=== PATIENT | male | born 1945 | race African-American/Black ===

== ENCOUNTER → 2016-04-28 | Outpatient (CLI) | payer MEDICARE, OTHER ==
[2016-01-23 14:28] VITALS: BP 157/84
[~2016-04-28] MED LIST: AMLO25PO MC; AMLO5TAB2 PO; APIX5TAB PO; BRIM5DRO2 OP; CYAN10005 PO; CYCL5TAB PO; DOCU100T5 PO; DOXY100C2 PO; DULO30CA2 PO; ERGO500012 PO; GABA-586 PO; GABA800T2 PO; HYDR-2678 PO; HYDR-965 PO; IRBE1TAB7 PO; IRBE300T3 PO; LATA2.5D3 EACHEYE; METF10002 PO; METF500T3 PO; MULT-658 PO; NAPR1TAB21 PO; NAPR250T2 PO; OXYC-323 PO; POTA20TA4 PO; PREG75CA PO; SPIR25TA3 PO; TIMO10DR11 OP; TIMO5DRO5 EACHEYE; TRAN4TAB9 PO; VERA240C2 PO; ZOLP10TA PO; ZOLP5TAB4 PO; [UNRECOGNIZED DRUG - CODE] IV
--- NOTE | 2016-04-29 15:58 | RAD ---
DATE: 04/28/2016 EXAM: DIGITAL DIAGNOSTIC BILATERAL HISTORY: History of right breast malignancy. COMPARISON: Bilateral study 03/11/2015 This study was interpreted with the benefit of Computerized Aided Detection (CAD). FINDINGS: The breast parenchyma is primarily fatty replaced. Breast parenchyma level density A.. There is now, in contrast to the previous exam, an area of increased density in the retroareolar area of the left breast. This does not have a particularly masslike appearance but it is definitely new. Targeted ultrasound to the retroareolar area of the left breast was performed. In addition to images submitted by the technologist a real-time examination was performed by me. Corresponding to the mammographic finding is a slightly vascular shadowing hypoechoic mass. Biopsy is recommended. IMPRESSION: New density in the retroareolar left breast. The findings on mammography and ultrasound are suspect. Ultrasound-guided biopsy is recommended. Recommendation for biopsy was communicated by me to the patient. BI-RADS CATEGORY: 4 SUSPICIOUS ABNORMALITY-BIOPSY SHOULD BE CONSIDERED RECOMMENDED FOLLOW-UP: BIO BIOPSY RECOMMENDED PQRS compliance statement: Patient information was entered into a reminder system with a target due date soon for the next mammogram. Mammography is a sensitive method for finding small breast cancers, but it does not detect them all and is not a substitute for careful clinical examination. A negative mammogram does not negate a clinically suspicious finding and should not result in delay in biopsying a clinically suspicious abnormality. "Our facility is accredited by the [employer] Mammography Program." DICTATED and SIGNED BY: BEN ROBLES MD DATE: 04/28/16 1454 MTDLetitia
== END | disposition home or self-care (01) ==
LOC: MAMMO 16:38
PROVIDERS: ATTEND Radiology Radiation Oncology
DX: R92.8 Other abnormal and inconclusive findings on diagnostic imaging of breast (principal); Z85.3 Personal history of malignant neoplasm of breast; N63 Unspecified lump in breast
CPT/HCPCS: 76641; G0204

== ENCOUNTER → 2016-05-06 | Outpatient (CLI) | payer MEDICARE, OTHER ==
[~2016-05-06] VITALS: Ht 185.4 cm; Wt 90.7 kg
[~2016-05-06] MED LIST changes: +DULO60CA6 PO; +IBUP-1060 PO; +PREG150C PO
[2016-05-06 08:47] VITALS: BP 137/83
--- NOTE | 2016-05-06 10:44 | RAD ---
EXAM: Sonographic guided left breast biopsy. HISTORY: 70-year-old male with a history of right breast cancer presents with a palpable left breast lump. TECHNIQUE: The risks of the procedure were discussed with the patient and written] consent was obtained. A timeout was performed. The skin overlying the left breast was sterilely prepped, draped and infiltrated with 1% lidocaine. Multiple core samples were obtained through the region of concern within the subareolar location of the left breast. The core samples were submitted to the department of pathology for analysis. Needle compression was maintained over the biopsy site until hemostasis was achieved. The patient tolerated the procedure without difficulty and was discharged in stable condition. IMPRESSION: Successful sonographic guided left breast biopsy.
--- NOTE | 2016-05-07 13:23 | PATHOLOGY ---
PATHOLOGY REPORT * * * * * * * * FINAL DIAGNOSIS: Breast tissue, left breast core biopsies: - Gynecomastia. COMMENT: There is no evidence of malignancy. (JPM:; d/t: 05/07/16) REPORT ELECTRONICALLY SIGNED BY: Brock Qiu M.D. DATE/TIME: 05/07/2016 13:22 * * * * * * * * GROSS PATHOLOGY: Received in formalin labeled "Jake Wilson Jr., left breast," are multiple needle cores of yellow-peacock fibrofatty tissue measuring 1.5 x 0.5 x 0.2 cm in aggregate dimensions. The tissue is submitted in its entirety in cassette A1. The cold ischemic time is 1 minute. The total formalin fixation time is 10 hours and 44 minutes. (CAA; 05/06/2016) INITIAL CPT CODE(S): A; 29619 Professional services performed [place] [place] [address] Technical services performed by [facility] at [address] [place] [address] [address], [place] [address]. SPECIMEN(S) RECEIVED: A.Left breast, 3 samples @ 0900 CLINICAL HISTORY: Left breast/nipple mass, history of right breast and thyroid ca PATIENT: JAKE WILSON JR /AGE: 8 1945 (Age: 70) PATIENT #: [id number] ALT CASE #: SPECIMEN COLLECTION DATE: 05/06/2016 SPECIMEN RECEIVED DATE: 05/06/2016 [facility] - [address] [place] [address] - PHONE: [phone] * * * END OF REPORT * * *
== END | disposition home or self-care (01) ==
LOC: US 08:32
PROVIDERS: ATTEND Radiology Radiation Oncology
DX: C50.222 Malignant neoplasm of upper-inner quadrant of left male breast (principal)
CPT/HCPCS: 76942; 88305

== ENCOUNTER 2016-06-15 22:58 | Emergency (ER) | payer MEDICARE, OTHER ==
[~2016-06-15] VITALS: Ht 182.9 cm; Wt 81.6 kg
[2016-06-16 00:14] LABS: BASO % 0 % (0-3); EOS % 4 % (0-3); HEMATOCRIT 37.6 % (39.0-53.0); HEMOGLOBIN 12.4 g/dL (13.0-17.5); LYMPH # 0.7 x10^3/uL (1.0-4.8); LYMPH % 9 % (24-48); MEAN CORPUSCULAR HEMOGLOBIN 31 pg (25-35); MEAN CORPUSCULAR HGB CONC 33 g/dL (31-37); MEAN CORPUSCULAR VOLUME 93 fL (79-100); MONO % 12 % (0-9); NEUT % 74 % (31-73); PLATELET COUNT 224 x10^3/uL (140-400); RED BLOOD COUNT 4.05 x10^6/uL (4.30-5.70); RED CELL DISTRIBUTION WIDTH 13.8 % (11.5-14.5); WHITE BLOOD COUNT 7.7 x10^3/uL (4.0-11.0)
[2016-06-16] MEDS ORDERED: IV NORMAL SALINE 1000ML BAG 1,000 ML IV SCH (00:15)
[2016-06-16] MEDS ORDERED: FENTANYL PF 100 MCG/2 ML VIAL. IV PRN (00:15)
[2016-06-16 00:17] LABS: BILIRUBIN,URINE NEGATIVE (NEG); GLUCOSE,URINE NEGATIVE (NEG); NITRITE,URINE NEGATIVE (NEG); PROTEIN,URINE NEGATIVE (NEG-TRACE); UROBILINOGEN,URINE 0.2 mg/dL (0.2 mg/dL)
--- NOTE | 2016-06-16 00:19 | PHYS DOC ---
Past Medical History Past Medical History: Cancer, Diabetes-Type II, High Cholesterol, Hypertension , Other Additional Past Medical Histor: prostate ca, thymic carcinoma, ductal carcinoma , neuropathy, swelling Past Surgical History: Other Additional Past Surgical Histo: prostectomy, chemo, radiation Alcohol Use: None Drug Use: None Adult General Chief Complaint Chief Complaint: FLANK PAIN HPI HPI Patient is a 70 year old male who presents with left flank and left lower quadrant abdominal pain. Patient states that he has had pain for the last 6 months, however it has worsened over the last 2 weeks. The patient saw his primary physician and was supposed to have a CT scan, however he stated that he was going on vacation and wanted to get this done after he got back. Patient states that the pain currently as 6 out of 10 and located in his left lower quadrant. Patient states that it does radiate towards his left flank. Patient has not had any associated diarrhea, hematuria, nausea, vomiting, or fever. The patient has an extensive cancer history including metastatic prostate cancer. Patient underwent chemotherapy throughout 2015, however due to interference [id number], he discontinued chemotherapy in August 2015. The patient continues to follow with oncology at this time. Review of Systems Review of Systems Constitutional: Denies fever or chills [] Eyes: Denies change in visual acuity, redness, or eye pain [] HENT: Denies nasal congestion or sore throat [] Respiratory: Denies cough or shortness of breath [] Cardiovascular: No additional information not addressed in HPI [] GI: Denies abdominal pain, nausea, vomiting, bloody stools or diarrhea [] : Denies dysuria or hematuria [] Musculoskeletal: Denies back pain or joint pain [] Integument: Denies rash or skin lesions [] Neurologic: Denies headache, focal weakness or sensory changes [] Endocrine: Denies polyuria or polydipsia [] Current Medications Current Medications Current Medications Medications (Trade) Dose Ordered Sig/Jacinta Start Time Stop Time Status Last Admin Dose Admin Fentanyl Citrate 50 mcg 50 mcg PRN Q15MIN PRN 06/16/16 00:15 06/17/16 00:14 06/16/16 00:14 50 MCG Info (Do NOT chart on this entry -- for MONITORING) 1 each PRN DAILY PRN 06/16/16 00:30 06/18/16 00:29 Iohexol (Omnipaque 300 Mg/ml) 75 ml 1X ONCE 06/16/16 01:00 06/16/16 01:01 DC 06/16/16 00:45 75 ML Ondansetron HCl (Zofran) 4 mg 1X ONCE 06/16/16 00:30 06/16/16 00:31 DC 06/16/16 00:14 4 MG Sodium Chloride (Iv Sodium Chloride 0.9% 1000ml Bag) 1,000 ml @ 1,000 mls/hr Q1H 06/16/16 00:15 06/16/16 01:14 DC 06/16/16 00:14 1,000 MLS/HR Allergies Allergies Allergies Coded Allergies Type Severity Reaction Last Updated Verified oxycodone Allergy Intermediate PURITIS 02/11/16 Yes Physical Exam Physical Exam Constitutional: Alert, afebrile, appears in mild discomfort. [] HENT: Normocephalic, atraumatic, bilateral external ears normal, oropharynx moist, no oral exudates, nose normal. [] Eyes: PERRLA, EOMI, conjunctiva normal, no discharge. [] Neck: Normal range of motion, no tenderness, supple, no stridor. [] Cardiovascular:Heart rate regular rhythm, no murmur [] Lungs & Thorax: Bilateral breath sounds clear to auscultation [] Abdomen: Bowel sounds normal, soft, no tenderness, no masses, no pulsatile masses. [] Skin: Warm, dry, no erythema, no rash. [] Back: No tenderness, no CVA tenderness. [] Extremities: No tenderness, no cyanosis, no clubbing, ROM intact, no edema. [] Neurologic: Alert and oriented X 3, normal motor function, normal sensory function, no focal deficits noted. [] Current Patient Data Vital Signs Vital Signs Date Time Temp Pulse Resp B/P Pulse Ox O2 Delivery O2 Flow Rate FiO2 06/16/16 00:14 16 Room Air 06/15/16 23:18 98.1 96 179/91 93 98.1 Lab Values Laboratory Tests Test 06/16/16 00:00 White Blood Count 7.7x10^3/uL (4.0-11.0) Red Blood Count 4.05x10^6/uL (4.30-5.70) L Hemoglobin 12.4g/dL (13.0-17.5) L Hematocrit 37.6% (39.0-53.0) L Mean Corpuscular Volume 93fL (79-100) Mean Corpuscular Hemoglobin 31pg (25-35) Mean Corpuscular Hemoglobin Concent 33g/dL (31-37) Red Cell Distribution Width 13.8% (11.5-14.5) Platelet Count 224x10^3/uL (140-400) Neutrophils (%) (Auto) 74% (31-73) H Lymphocytes (%) (Auto) 9% (24-48) L Monocytes (%) (Auto) 12% (0-9) H Eosinophils (%) (Auto) 4% (0-3) H Basophils (%) (Auto) 0% (0-3) Neutrophils # (Auto) 5.7x10^3uL (1.8-7.7) Lymphocytes # (Auto) 0.7x10^3/uL (1.0-4.8) L Monocytes # (Auto) 1.0x10^3/uL (0.0-1.1) Eosinophils # (Auto) 0.3x10^3/uL (0.0-0.7) Basophils # (Auto) 0.0x10^3/uL (0.0-0.2) Urine Collection Type Unknown Urine Color Yellow Urine Clarity Clear Urine pH 6.0 Urine Specific [place] >=1.030 Urine Protein Negativemg/dL (NEG-TRACE) Urine Glucose (UA) Negativemg/dL (NEG) Urine Ketones (Stick) Negativemg/dL (NEG) Urine Blood Negative (NEG) Urine Nitrite Negative (NEG) Urine Bilirubin Negative (NEG) Urine Urobilinogen Dipstick 0.2mg/dL (0.2 mg/dL) Urine Leukocyte Esterase Negative (NEG) Urine RBC 0/HPF (0-2) Urine WBC Occ/HPF (0-4) Urine Squamous Epithelial Cells Few/LPF Urine Amorphous Sediment Present/HPF Urine Bacteria 0/HPF (0-FEW) Urine Mucus Mod/LPF Sodium Level 143mmol/L (136-145) Potassium Level 4.0mmol/L (3.5-5.1) Chloride Level 104mmol/L (98-107) Carbon Dioxide Level 31mmol/L (21-32) Anion Gap 8 (6-14) Blood Urea Nitrogen 22mg/dL (8-26) Creatinine 1.1mg/dL (0.7-1.3) Estimated GFR (Cockcroft-Gault) 80.3 BUN/Creatinine Ratio 20 (6-20) Glucose Level 145mg/dL (70-99) H Calcium Level 9.6mg/dL (8.5-10.1) Total Bilirubin 0.3mg/dL (0.2-1.0) Aspartate Amino Transferase (AST) 22U/L (15-37) Alanine Aminotransferase (ALT) 31U/L (16-63) Alkaline Phosphatase 101U/L (46-116) Troponin I Quantitative < 0.017ng/mL (0.000-0.055) Total Protein 6.6g/dL (6.4-8.2) Albumin 3.7g/dL (3.4-5.0) Albumin/Globulin Ratio 1.3 (1.0-1.7) Lipase 208U/L (73-393) Laboratory Tests 06/16/16 00:00 Laboratory Tests 06/16/16 00:00 EKG EKG Not performed [] Radiology/Procedures Radiology/Procedures [facility] [address] [place] [address] IMAGING REPORT Signed PATIENT: LYNDA PEREZ ACCOUNT: [id number] : 1945 LOCATION: ER AGE: 70 SEX: M EXAM STATUS: REG ER ORD. PHYSICIAN: COCO ESPINOZA MD REASON: left lower quadrant abdominal pain, history of metastatic prostate cancer PROCEDURE: ABD PELV W/ IV CONTRAST ONLY INDICATION: Abdomen pain. COMPARISON: March 2016 TECHNIQUE: Axial CT images obtained through the abdomen and pelvis. Intravenous contrast was utilized. One or more of the following individualized dose reduction techniques were utilized for this examination: 1. Automated exposure control; 2. Adjustment of the mA and/or kV according to patient size; 3. Use of iterative reconstruction technique. FINDINGS: Masslike structure is seen at the left chest base within the pleural region as well as adjacent to the aorta and at upper abdomen. This masslike structure measures approximately 66 x 30 millimeter. Small left pleural effusion. Moderate calcific atherosclerosis. No intrahepatic bile duct dilation. No pancreatic edema. Spleen is unremarkable. 6 millimeter nonobstructive left renal stone. Probable cystic lesion left kidney as well as a couple of bilateral low-attenuation lesions which are too small to characterize. Left fat containing inguinal hernia. Bladder partially distended. Colonic diverticulosis. Appendix does not appear inflamed. No dilated loops of bowel to suggest obstruction. Small fat containing umbilical hernia. Degenerative changes of spine. 15 millimeter lucent focus L2 vertebral body. IMPRESSION: No evidence of bowel obstruction or appendicitis. Repeat demonstration of masslike structure at the left chest base. Given the patient's history metastatic disease is in the differential for this finding. This appears increased from prior. Nonobstructive left renal stone. There is some bilateral low-attenuation renal lesions. The largest has the appearance of the cystic lesion a couple of them are too small to characterize. Lucent focus at the L2 vertebral body. Could be from focal osteopenia or hemangioma but given the patient's history more worrisome neoplastic causes are not excluded. Nonemergent MRI could better evaluate Electronically signed by: Duane Foreman (Jun 16, 2016 01:48:56) DICTATED and SIGNED BY: DUANE FOREMAN MD DATE: 06/16/16 014 CC: COCO ESPINOZA MD; SHILPA LEO ~ [] Course & Med Decision Making Course & Med Decision Making Pertinent Labs and Imaging studies reviewed. (See chart for details) Patient was given Zofran, fentanyl, and IV fluids. On reevaluation, patient states his symptoms have improved at this time. The etiology of patient's pain is unclear, however I remain suspicious that the patient's pain may be related to metastatic prostate cancer. At this time the patient will be started on [place] for treatment of pain and advised follow-up with his primary doctor in the next 2-3 days. Advised return emergency department for any worsening symptoms. Patient voiced understanding and in agreement with treatment plan. Dragon Disclaimer Dragon Disclaimer This electronic medical record was generated, in whole or in part, using a voice recognition dictation system. Departure Departure Impression: Primary Impression: Abdominal pain Referrals: SHILPA LEO (PCP) Patient Instructions: Abdominal Pain Additional Instructions: Follow-up with your primary doctor in the next 2-3 days. Return to the emergency department for any worsening symptoms. Scripts Hydrocodone/Apap 5-325 (B[place]bridge 5-325 Tablet)1 Each Tablet1-2 Tab PO Q4-6HRS PRN PAIN #20 TAB Prov:COCO ESPINOZA MD 06/16/16 Problem Qualifiers Primary Impression: Abdominal pain Abdominal location: left lower quadrant Qualified Code: R10.32 - Left lower quadrant pain COCO ESPINOZA MD Jun 16, 2016 00:19
[2016-06-16 00:24] LABS: BACTERIA,URINE 0 /HPF (0-FEW); RBC,URINE 0 /HPF (0-2); WBC,URINE OCC /HPF (0-4)
[2016-06-16 00:25] LABS: SQUAMOUS EPITHELIAL CELL,UR FEW /LPF
[2016-06-16 00:28] LABS: CALCIUM 9.6 mg/dL (8.5-10.1); CREATININE 1.1 mg/dL (0.7-1.3); GFR 80.3
[2016-06-16] MEDS ORDERED: CONTRAST GIVEN MC PRN (00:30)
[2016-06-16] MEDS ORDERED: ONDANSETRON PF 4 MG/2 ML VIAL. IV ONE (00:30)
[2016-06-16 00:33] LABS: ALBUMIN 3.7 g/dL (3.4-5.0); ALBUMIN/GLOBULIN RATIO 1.3 (1.0-1.7); TOTAL BILIRUBIN 0.3 mg/dL (0.2-1.0); TOTAL PROTEIN 6.6 g/dL (6.4-8.2)
[2016-06-16] MEDS ORDERED: IOHEXOL 300 MG/ML 75 ML VIAL IV ONE (01:00)
--- NOTE | 2016-06-16 01:50 | RAD ---
INDICATION: Abdomen pain. COMPARISON: March 2016 TECHNIQUE: Axial CT images obtained through the abdomen and pelvis. Intravenous contrast was utilized. One or more of the following individualized dose reduction techniques were utilized for this examination: 1. Automated exposure control; 2. Adjustment of the mA and/or kV according to patient size; 3. Use of iterative reconstruction technique. FINDINGS: Masslike structure is seen at the left chest base within the pleural region as well as adjacent to the aorta and at upper abdomen. This masslike structure measures approximately 66 x 30 millimeter. Small left pleural effusion. Moderate calcific atherosclerosis. No intrahepatic bile duct dilation. No pancreatic edema. Spleen is unremarkable. 6 millimeter nonobstructive left renal stone. Probable cystic lesion left kidney as well as a couple of bilateral low-attenuation lesions which are too small to characterize. Left fat containing inguinal hernia. Bladder partially distended. Colonic diverticulosis. Appendix does not appear inflamed. No dilated loops of bowel to suggest obstruction. Small fat containing umbilical hernia. Degenerative changes of spine. 15 millimeter lucent focus L2 vertebral body. IMPRESSION: No evidence of bowel obstruction or appendicitis. Repeat demonstration of masslike structure at the left chest base. Given the patient's history metastatic disease is in the differential for this finding. This appears increased from prior. Nonobstructive left renal stone. There is some bilateral low-attenuation renal lesions. The largest has the appearance of the cystic lesion a couple of them are too small to characterize. Lucent focus at the L2 vertebral body. Could be from focal osteopenia or hemangioma but given the patient's history more worrisome neoplastic causes are not excluded. Nonemergent MRI could better evaluate Electronically signed by: Daquan Hobson (Jun 16, 2016 01:48:56)
[2016-06-16] MEDS ORDERED: HYDR-971 PO (02:11)
[2016-06-16 02:21] VITALS: BP 166/96
== END 2016-06-16 02:27 | disposition home or self-care (01) ==
LOC: ER 22:58
DX: R10.32 Left lower quadrant pain (principal); E78.00 Pure hypercholesterolemia, unspecified; I10 Essential (primary) hypertension; E11.40 Type 2 diabetes mellitus with diabetic neuropathy, unspecified; N20.0 Calculus of kidney; Z88.5 Allergy status to narcotic agent
CPT/HCPCS: 36415; 74177; 80053; 81001; 83690; 84484; 85027; 96361; 96374; 96375; 99285; J2405; J3010; J7030; Q9967

== ENCOUNTER → 2016-06-23 | Outpatient (CLI) | payer MEDICARE, OTHER ==
[2016-06-16 02:21] VITALS: BP 166/96
[~2016-06-23] MED LIST changes: +HYDR-971 PO; +TAMS0.4C97 PO; -ZOLP5TAB4 PO; +ZOLP5TAB5 PO
--- NOTE | 2016-06-23 15:56 | RAD ---
Exam performed: X-ray abdomen KUB. Clinical Indication: Left renal stone Date of Service: 06/23/16 Comparison: 10/01/04 Supine radiograph of the abdomen and pelvis reveals no evidence of ileus or obstruction. There is a calcification projecting over the left renal outline. There is scattered stool throughout the colon. The visualized osseous structures appear unremarkable. Impression: 1. Left renal calculus.
== END | disposition home or self-care (01) ==
LOC: RAD 15:05
PROVIDERS: ATTEND Urology
DX: N20.1 Calculus of ureter (principal); N20.0 Calculus of kidney
CPT/HCPCS: 74000

== ENCOUNTER → 2016-07-08 | Outpatient (CLI) | payer MEDICARE, OTHER ==
[2016-06-16 02:21] VITALS: BP 166/96
--- NOTE | 2016-07-08 12:49 | RAD ---
KUB, 07/08/2016: History: Left-sided abdominal pain, kidney stones Comparison is made to a study from 06/23/2016. The abdominal gas pattern is unremarkable. There are surgical clips in the lower pelvis. The renal regions are partially obscured by overlying bowel content. No intrarenal calculi are identified. The previously seen left intrarenal calculus is not currently visualized, although it could be obscured by overlying bowel. No similar radiopacities seen along the expected course of either ureter. An unchanged lower pelvic calcification on the right is compatible with a phlebolith. IMPRESSION: 1. The small left intrarenal calculus seen on the previous exam is not currently visualized, although it could be obscured by overlying bowel. 2. No acute abdominal abnormality is detected.
== END | disposition home or self-care (01) ==
LOC: RAD 08:32
PROVIDERS: ATTEND Urology
DX: R10.9 Unspecified abdominal pain (principal); Z87.442 Personal history of urinary calculi
CPT/HCPCS: 74000

== ENCOUNTER → 2016-07-15 | Outpatient (CLI) | payer MEDICARE, OTHER ==
[2016-06-16 02:21] VITALS: BP 166/96
--- NOTE | 2016-07-15 11:41 | KCIC ---
Examination: CT of the abdomen pelvis without contrast HISTORY History of left renal calculus. COMPARISON None available. TECHNIQUE Axial CT images of the head was performed without contrast. Coronal sagittal was performed. Exposure: One or more of the following dose reduction technique were utilized for this examination: 1. Automated exposure control. 2.Adjustment of MA and /or KV according to patient size. 3. Use of iterative reconstruction technique. Findings : There is focus of airspace opacity identified in the left lower lobe of the lung abutting the pleura measuring 1.7 centimeters could be a focus of atelectasis or infiltrate or mass. In the posterior medial portion of the posterior mediastinum just posterior to the descending aorta and medial to the posterior medial left pleura, best visualized on axial image #37 there is a nonspecific soft tissue density measuring 4.1 x 2.9 centimeters abutting the left side of the T10 vertebral body. The evaluation of the solid organs is limited lack of IV contrast. The evaluation of the bowel is limited lack of oral contrast. The visualized non contrasted liver, spleen, adrenals grossly appears unremarkable. The gallbladder is mildly distended. The visualized pancreas grossly appears unremarkable. The stomach is mildly distended. The small bowel is nondilated. Normal-appearing appendix. Feces and gas noted in the colon. Numerous sigmoid colon diverticulosis identified . There is asymmetric thickening identified in the distal rectal wall region. The urinary bladder is mildly distended. There is mild thickened appearance of the wall of the urinary bladder. There is a cystic structure identified in the superior left kidney measuring 1.6 centimeters could be a cyst or cystic lesion. There is a punctate 2 millimeter intrarenal collecting system calculus identified in the left kidney. There is a 8 millimeters intrarenal collecting system calculus identified in the inferior pole of the left kidney. No evidence of hydronephrosis . Moderate aortic atherosclerosis. Moderate intervertebral disc height loss identified at L4-L5 vertebral level. IMPRESSION - Intrarenal collecting system calculi identified in the left kidney with the largest measuring 8 millimeters. No evidence of hydronephrosis. - Mild thickened appearance of the wall of the urinary bladder, nonspecific . - Numerous sigmoid colon diverticulosis. There is mild asymmetric thickening of the distal rectum. Followup colonoscopy can be considered. - 4.1 centimeter soft tissue density projects posterior to the descending aorta just to the left of T10 vertebral body, difficult to characterize without contrast. Recommend followup CT or MRI chest with IV contrast for better evaluation. - 1.7 centimeter focus of airspace opacity identified in the left lung base likely atelectasis/ infiltrate or mass. Followup CT chest is recommended. - There is a cystic structure identified in the superior left kidney measuring 1.6 centimeters could be a cyst or cystic lesion. Electronically signed by: Jose David Avendano (Jul 15, 2016 11:40:06)
== END | disposition home or self-care (01) ==
LOC: KCIC CT 09:48
PROVIDERS: ATTEND Urology
DX: N20.0 Calculus of kidney (principal)
CPT/HCPCS: 74176

== ENCOUNTER → 2016-07-15 | Outpatient (CLI) | payer MEDICARE, OTHER ==
[2016-06-16 02:21] VITALS: BP 166/96
[~2016-07-15] MED LIST changes: +GADOBUTROL 10 MMOL/10 ML VIAL IV ONE
--- NOTE | 2016-07-15 15:11 | KCIC ---
PROCEDURE MRI of the lumbar spine without and with contrast 07/15/2016 HISTORY Low back pain. History of prostate cancer. TECHNIQUE Unenhanced T1 weighted and T2 weighted sagittal and axial and inversion recovery sagittal images of the lumbar spine were obtained. After the intravenous administration of 9 cc of Gadavist, enhanced T1 weighted sagittal and axial images of the lumbar spine were obtained. FINDINGS Very mild S-shaped curvature of the thoracolumbar spine is seen. Degenerative signal changes are seen involving all of the discs of the lumbar spine. Loss of height of the L4-5 disc is noted. Degenerative signal changes are seen within the marrow surrounding all of the discs of the lumbar spine. A 2.2 centimeter hemangioma is seen involving the L2 vertebral body. There is no MRI evidence of metastatic disease involving the lumbar vertebrae. The conus medullaris is normal in morphology, position, and signal characteristics. No area of abnormal contrast enhancement is seen. At the L1-2 disc space there is a mild to moderate generalized disc bulge. Degenerative changes are seen involving the facet joints bilaterally. There is moderate ligamentum flavum hypertrophy bilaterally. There is prominence of the posterior epidural fat. These findings when combined do not result in significant central spinal canal or neural foraminal stenosis. At the L2-3 disc space there is a mild generalized disc bulge. Degenerative changes are seen involving the facet joints bilaterally. There is mild to moderate ligamentum flavum hypertrophy bilaterally. These findings do not result in significant central spinal canal or neural foraminal stenosis. At the L3-4 disc space there is a mild to moderate generalized disc bulge. This is eccentric to the right. Degenerative changes are seen involving the facet joints bilaterally. There is moderate ligamentum flavum hypertrophy bilaterally. There is prominence of the posterior epidural fat. These findings when combined result in mild to moderate central spinal canal stenosis. Moderate right neural foraminal stenosis is seen. The left neural foramina is patent. At the L4-5 disc space there is a moderate generalized disc bulge. Degenerative changes are seen involving the facet joints bilaterally. There is moderate ligamentum flavum hypertrophy bilaterally. These findings when combined result in mild to moderate moderate right greater than left central spinal canal stenosis. Moderate right neural foraminal stenosis is seen. The left neural foramina is patent. At the L5-S1 disc space there is moderate generalized disc bulge. Degenerative changes are seen involving the facet joints bilaterally. There is moderate ligamentum flavum hypertrophy bilaterally. These findings when combined result in mild central spinal canal stenosis. No neural foraminal stenosis is seen. IMPRESSION 1. There is no MRI evidence of metastatic disease involving the lumbar vertebrae. 2. The changes of degenerative disc disease are seen throughout the lumbar spine. These findings result in mild to moderate central spinal canal stenosis at L3-4, mild to moderate right greater than left central spinal canal stenosis at L4-5 and mild central spinal canal stenosis at L5-S1. Moderate right neural foraminal stenosis is seen at L3-4 and L4-5. Electronically signed by: Jose Martin Ridley MD (Jul 15, 2016 15:09:08)
--- NOTE | 2016-07-16 09:52 | KCIC ---
PROCEDURE MRI of the abdomen without and with contrast 07/15/2016 HISTORY Metastatic prostate cancer with left-sided abdominal pain. TECHNIQUE Unenhanced in and out of phase, T1 weighted axial, T2 weighted axial and fat saturated T2 weighted axial and coronal images of the abdomen were obtained. After the intravenous administration of 9 cc Gadavist, enhanced fat saturated T1 weighted axial and T1 weighted coronal images of the abdomen were obtained. FINDINGS Comparison is made to a CT scan of the abdomen performed at [facility] dated 06/16/2016. Pleural thickening is seen involving the posterior aspect of the left lower lobe. A 6 centimeter masslike area is seen posterior to the thoracic aorta within the medial posterior inferior left chest which is suspicious for metastasis. This is not significantly changed. The heart is mildly enlarged. The liver, spleen, pancreas and adrenal glands are within normal limits. Several rounded high signal intensity lesions are seen scattered throughout both kidneys on the T2 weighted images consistent with cysts. These measure 3 millimeters to 1.8 centimeters in size. The abdominal aorta tapers normally. No free fluid is seen within the abdomen. No retroperitoneal lymphadenopathy is seen. Multiple diverticula are seen involving the colon. The gallbladder is well distended. There is no definite evidence of bowel obstruction. IMPRESSION 1. 6 centimeter masslike area is seen posterior to the thoracic aorta within the medial posterior inferior left chest suspicious for a metastasis. It is unchanged. 2. No acute abnormality is seen. Electronically signed by: Jose Martin Ridley MD (Jul 16, 2016 09:50:37)
== END | disposition home or self-care (01) ==
LOC: KCIC MRI 09:24
PROVIDERS: ATTEND Family Medicine
DX: R93.8 Abnormal findings on diagnostic imaging of other specified body structures (principal)
CPT/HCPCS: 72158; 74183; 82565; A9585

== ENCOUNTER → 2016-07-15 | Outpatient (CLI) | payer MEDICARE, OTHER ==
[2016-06-16 02:21] VITALS: BP 166/96
[~2016-07-15] MED LIST changes: -GADOBUTROL 10 MMOL/10 ML VIAL IV ONE
--- NOTE | 2016-07-15 14:46 | RAD ---
CT of the chest without contrast, 07/15/2016: History: Thymic cancer follow-up, pulmonary nodules Noncontrast scans were obtained as requested and compared to a study from 03/31/2016. Multiple soft tissue pleural nodules are again identified on the left. These have increased slightly in size. For example a anterolateral nodule seen on image 46 of series #2 currently measures 7 mm in width compared to a measurement of just over 5 mm on the previous study. Multiple other pleural nodules have increased slightly in size including a couple of tiny nodules along the superior aspect of the oblique fissure on the left. Soft tissue densities in the medial aspect of the posterior costophrenic angle on the left have increased in size. While the majority of these nodules appear to be pleural-based, there are also several parenchymal nodules as seen in the left upper lobe on image 42 of series #2. The largest of these measures 5-6 mm and also appears to be increased slightly in size. There is a trace amount of left-sided pleural fluid. There is a patch of mild streaky infiltrate in the anteromedial aspect of the left upper lobe, unchanged since the previous study. No nodules are evident in the right chest. No right-sided pleural fluid is seen. There has been a previous median sternotomy. Surgical clips are present in the anterior mediastinum. Several small mediastinal lymph nodes are noted. These have increased slightly in size, although they do not demonstrate definite pathologic enlargement. A small nodule in the epicardial fat along the lateral aspect of the left ventricle has also increased slightly in size. A small soft tissue density in the lower internal mammary region on the left as seen on image 53 of series #2 has also increased in size. There is calcific plaquing of the aorta. The ascending aorta is mildly dilated measuring just over 4 cm in width. A nonspecific right thyroid nodule is again noted. IMPRESSION: 1. Predominantly pleural-based nodules in the left chest have increased in size since 03/31/2016 compatible with progressive metastatic disease. 2. Small epicardial and left internal mammary region nodules have also enlarged slightly. 3. Aortic atherosclerosis with borderline enlargement of the ascending aorta. PQRS Compliance Statement: One or more of the following individualized dose reduction techniques were utilized for this examination: 1. Automated exposure control 2. Adjustment of the mA and/or kV according to patient size 3. Use of iterative reconstruction technique
== END | disposition home or self-care (01) ==
LOC: KCIC CT 10:24
PROVIDERS: ATTEND Internal Medicine Hematology & Oncology
DX: C37 Malignant neoplasm of thymus (principal); I70.0 Atherosclerosis of aorta
CPT/HCPCS: 71250

== ENCOUNTER → 2016-08-11 | Outpatient (CLI) | payer MEDICARE, OTHER ==
--- NOTE | 2016-08-11 12:03 | KCIC ---
PROCEDURE CT abdomen pelvis without contrast. HISTORY Left renal calculi post renal stent. TECHNIQUE Helical CT imaging of the abdomen and pelvis is performed without IV or oral contrast using renal stone protocol. PQRS: One or more the following individualized dose reduction techniques were utilized for the study: 1. Automated exposure control. 2. Adjustment of the mA and/or kV according to patient size. 3. Use of iterative reconstruction technique. COMPARISON CT abdomen and pelvis without contrast July 15, 2016. FINDINGS Stable nodular opacities in the left lower lobe. Soft tissue mass posterior to the descending thoracic aorta in the medial left extrapleural space is unchanged. There is left posterior inferior pleural thickening. Left cardiophrenic soft tissue density is unchanged, image 15. The liver, gallbladder, spleen, pancreas, adrenal glands, and abdominal aorta are normal. The right kidney is normal. There is left ureteral stent. Small left upper pole renal cyst. Mild left perinephric stranding. There is no hydronephrosis. There is periureteral stranding. There is a Stevens catheter in the bladder, bladder is completely decompressed. Surgical clips of prostatectomy. Stomach unremarkable. Tiny fat containing umbilical hernia. Dilated small bowel is normal. Moderate descending and sigmoid colon diverticulosis, no surrounding inflammation. Moderate stool in the ascending and transverse colon. No colon wall thickening. The appendix is normal. No pelvic free fluid. Vacuum disc phenomenon and reactive endplate changes of L4/L5. IMPRESSION 1. Stable medial and posterior left extrapleural soft tissue mass. 2. Stable nodular opacities in the left lower lobe and left posterior inferior pleural thickening. 3. Left ureteral stent in appropriate position. There is Stevens catheter, bladder is completely decompressed. 4. Distal colon diverticulosis without evidence of diverticulitis. Electronically signed by: Chago Easley MD (Aug 11, 2016 12:01:51)
== END | disposition home or self-care (01) ==
LOC: KCIC CT 08:18
PROVIDERS: ATTEND Urology
DX: N20.0 Calculus of kidney (principal)
CPT/HCPCS: 74176

== ENCOUNTER → 2016-09-15 | Outpatient (CLI) | payer MEDICARE, OTHER ==
[~2016-09-15] MED LIST changes: +CONTRAST GIVEN MC PRN; +IOHEXOL 240 MG/ML 50ML VIAL. PO ONE; +IOHEXOL 300 MG/ML 75 ML VIAL IV ONE; +METF-620 PO; -METF10002 PO
--- NOTE | 2016-09-15 11:58 | RAD ---
CT of the chest, abdomen and pelvis with contrast, 09/15/2016: History: Left-sided abdominal pain, thymic neoplasm, prostatic cancer Multidetector CT imaging was performed following oral and IV administration of contrast. Comparison is made to a CT chest exam from 07/15/[address] abdomen and pelvis from 08/11/2016. There are multiple pleural-based soft tissue densities in the left hemithorax. These densities are most prominent posteromedially in the left lower chest, where this process measures approximately 3 cm in width. Multiple additional smaller pleural-based densities are present in the left chest. There are also several small perifissural nodules on the left. These densities appear to be unchanged. Two small opacities identified in the left upper lobe on image 26 of series #2, actually represent additional areas of pleural thickening related to an accessory fissure as evident on the sagittal reconstructions. These opacities appear to be unchanged. Unchanged streaky parenchymal opacities in the anteromedial aspect of the left upper lobe are unchanged and probably due to scarring. There are nearby radiopaque suture lines and/or surgical clips. The small soft tissue density in the lower internal mammary region on the left is unchanged. There appears to be a trace amount of pleural fluid posteriorly on the left. The right lung remains clear. No right-sided pleural fluid is evident. There is calcific plaquing of the thoracic aorta. The ascending aorta is at the upper limits of normal in size measuring 4 cm in width. No mediastinal or hilar adenopathy is seen. A right thyroid nodule is unchanged. No hepatic abnormality is detected. The gallbladder is unremarkable. The pancreas and spleen show no abnormality. Numerous small low-density lesions in the kidneys are compatible with cysts, although some of the smaller lesions are too small to definitively characterize. The left ureteral stent has been removed. There is no evidence of hydronephrosis. No adrenal abnormality is detected. Moderate aortoiliac calcific plaquing is present without evidence of aneurysm. No abdominal or pelvic adenopathy is seen. Surgical clips in the deep pelvis are probably secondary to a previous prostatectomy. Colonic diverticulosis is present, most extensive in the sigmoid region. No paracolonic inflammatory process is seen. The bowel loops are not dilated. No free fluid is evident in the abdomen or pelvis. IMPRESSION: 1. 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 2. No new chest abnormality is detected. 3. The left ureteral stent has been removed since 08/11/2016. 4. Extensive sigmoid diverticulosis. PQRS Compliance Statement: One or more of the following individualized dose reduction techniques were utilized for this examination: 1. Automated exposure control 2. Adjustment of the mA and/or kV according to patient size 3. Use of iterative reconstruction technique
== END | disposition home or self-care (01) ==
LOC: CT 08:35
PROVIDERS: ATTEND Internal Medicine Hematology & Oncology
DX: C37 Malignant neoplasm of thymus (principal)
CPT/HCPCS: 71260; 74177; Q9966; Q9967

== ENCOUNTER → 2016-10-01 | Outpatient (CLI) | payer MEDICARE, OTHER ==
[~2016-10-01] MED LIST changes: -CONTRAST GIVEN MC PRN; -IOHEXOL 240 MG/ML 50ML VIAL. PO ONE; -IOHEXOL 300 MG/ML 75 ML VIAL IV ONE
--- NOTE | 2016-10-01 11:56 | RAD ---
Indication thymic malignancy. Restaging. PET CT was performed from the skull through the proximal thigh. CT was performed primarily for localization and attenuation purposes as opposed to primary diagnostic purposes. Blood sugar during the examination was entered and 37. 13.2 mCi of FDG was injected. Note is made of a previous examination 11/18/2012 demonstrating a single focus of hypermetabolic activity in the anterior mediastinum note is made of the CT examination of the chest abdomen and pelvis 09/15/2016 demonstrating findings compatible with pleural-based metastatic disease in the left hemithorax On CT the visualized brain appears unremarkable. No significant finding is seen in the neck. Known pathology involving the pleura in the left hemithorax is reproduced. Similar to the previous exam. A new finding in the chest is not seen no acute or new finding is seen in the abdomen or pelvis. On PET the pleural-based soft tissue masses, referenced on the CT examination 09/15/2016 are FDG avid. The dominant pleural-based mass is in the left lung base medially. Maximum SUV associated with this mass is 7.2. Several additional FDG avid pleural-based masses are seen in the left midlung laterally, ventrally and superiorly and medially. There are soft tissue masses laterally, posteriorly and ventrally in the left upper abdomen, immediately adjacent to left lower ribs. These soft tissue masses are FDG avid with maximum SUV of approximately 5.5 consistent with a focus of soft tissue metastatic disease apart from this the FDG is physiologically distributed in the abdomen and pelvis. There is a minimally avid FDG soft tissue mass in the left breast, maximum SUV 2. This likely represents a focus of gynecomastia. IMPRESSION: Pleural-based masses in the left hemithorax, referenced on the CT examination 09/15/2016, are FDG avid compatible with pleural metastatic disease. There are FDG soft tissue masses laterally, ventrally and posteriorly in the left upper abdomen also compatible with foci of metastatic disease Minimally avid soft tissue mass in the left breast likely reflecting a focus of gynecomastia
== END | disposition home or self-care (01) ==
LOC: PETSC 09:18
PROVIDERS: ATTEND Internal Medicine Hematology & Oncology
DX: C37 Malignant neoplasm of thymus (principal)
CPT/HCPCS: 78815; A9552

== ENCOUNTER → 2016-12-17 | Outpatient (CLI) | payer MEDICARE, OTHER ==
[~2016-12-17] MED LIST changes: +AMIT25TA PO; -ERGO500012 PO; +ERGO500027 PO
--- NOTE | 2016-12-17 11:18 | RAD ---
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 Chemotherapy on 08/2015. Radiation therapy 4 weeks ago. Surgery in 2013.. Follow-up PET/CT. FDG PET-CT of the Body TECHNIQUE: The patient received an IV injection of 12.44 mCi 18F-FDG in the right hand . After an initial uptake phase of approximately 60-90 minutes, a CT scan without oral contrast, without IV contrast was acquired. Subsequently, positron emission tomography images from the skull base to mid thigh were obtained. CT, PET and fused images were reconstructed in transaxial, coronal, and sagittal projections and interpreted from a workstation. The patient's plasma glucose was 159 mg/dl. PRIOR STUDIES: Prior PET/CT from 10/01/2016 CORRELATIVE STUDIES: CT chest/abdomen/pelvis from 09/15/2016 FINDINGS: CT: The visualized sections through the brain are within normal limits. Orbits within normal limits. Noncontrast appearance of the nasopharynx, oropharynx, hypopharynx is within normal limits. No pathologically enlarged cervical lymph nodes. Asymmetrically enlarged right thyroid lobe. Post surgical changes seen in the prevascular space. No obvious soft tissue identified. Nodular soft tissue is seen along the aortopulmonary window and in the epicardial space on the left. Heart is normal in size. No pericardial effusion. No axillary, hilar adenopathy. Discontinuous nodular thickening of the left pleura noted. The solar sales representative thickening in the left pleural aspect measures 1.4 cm (series 3 image 132), previously 0.9 cm. Relatively stable soft tissue is seen in the left paravertebral region at the level T11-T12 vertebral bodies measuring 5.6 x 3.2 cm (series 3 image 183), previously 5.2 x 3.6 cm. Stable nodular pleural thickening noted in the left major fissure. Stable left pulmonary nodules, the largest measuring 7 mm (series 3 image 122). The noncontrast appearance of the liver, spleen, gallbladder, pancreas, adrenals and right kidney within normal limits. Likely simple cyst within left kidney. No abdominal or pelvic adenopathy. No bowel obstruction. Severe sigmoid and distal descending colon diverticulosis without diverticulitis. Scattered atherosclerotic disease of abdominal aorta and bilateral iliac arteries. Bladder is decompressed. Prostate is not visualized likely surgically absent or atrophic. Surgical clips seen in the region of bilateral seminal vesicles. 6 No suspicious bony lesions. PET: No abnormal metabolic activity seen in the head and neck. No abnormal metabolic activity seen in the prevascular space. Increased metabolic activity is seen in the medial aspect of the left upper pleura in the in the superior mediastinum with SUV max of 4.6, previously 3.2. Increased metabolic activity seen in the nodular pleural thickening. The solar sales representative pleural thickening in the lateral aspect shows SUV max of 2.6, previously 1.2. Increased metabolic activity is seen in the paraspinal soft tissue at the level of T11 and T12 vertebral bodies with SUV max of 5.1, previously 5.1. Nodular increased metabolic activity is seen in the left upper anterior lateral abdominal wall with SUV max measuring 3.0, previously 3.8. No abnormal FDG activity seen within abdomen, pelvis or body wall soft tissue and visualized extremities. IMPRESSION: PET-CT from the skull base to mid thigh demonstrates: 1. Relatively stable multifocal pleural-based metastasis. Some areas of nodular pleural thickness however demonstrate increased in size and metabolic activity when compared to prior study which may suggest slight progression in disease. 2. Additional 2 stable focal areas of increased activity along the left anterolateral upper abdominal wall concerning for metastasis. 3. Relatively stable lobulated soft tissue metastatic implant in the left paraspinal region at the level of T11-T12 vertebral bodies. sign diagnostic
== END | disposition home or self-care (01) ==
LOC: PETSC 07:50
PROVIDERS: ATTEND Internal Medicine Hematology & Oncology
DX: C37 Malignant neoplasm of thymus (principal); Z85.238 Personal history of other malignant neoplasm of thymus
CPT/HCPCS: 78815; A9552

== ENCOUNTER → 2017-01-19 | Outpatient (CLI) | payer MEDICARE, OTHER ==
[~2017-01-19] MED LIST changes: -NAPR250T2 PO; +NAPR250T6 PO
--- NOTE | 2017-01-19 14:41 | KCIC ---
KUB History: Nephrolithiasis, previous left kidney surgery Comparison: August 11, 2016 CT exam Findings: KUB is submitted. Previously seen left ureteral stent has been removed. No convincing calculus is seen in the expected course of ureters or in the region of the renal shadows. There is prominent retained stool in segments of the colon. There are clips in the pelvis. There is degenerative disc disease greater inferiorly of the lumbar spine. There is mild S-shaped scoliosis of the lumbar spine. Impression: 1. No urolithiasis is identified by radiograph. 2. There is fairly prominent retained stool in segments of the colon. Electronically signed by: Placido Robertson MD (01/19/2017 2:38 PM) [id number]
== END | disposition home or self-care (01) ==
LOC: KCIC 14:01
PROVIDERS: ATTEND Urology
DX: N20.0 Calculus of kidney (principal); Z87.442 Personal history of urinary calculi
CPT/HCPCS: 74000

== ENCOUNTER → 2017-04-01 | Outpatient (CLI) | payer MEDICARE, OTHER ==
--- NOTE | 2017-04-01 13:11 | RAD ---
FDG tumor localization scan, PET/CT, 04/01/2017: History: Restaging thymic malignancy Following IV injection of 13.5 mCi of 18 F-FDG, imaging was performed from the skull base to the proximal thighs. The noncontrast CT component was performed for attenuation correction and anatomic localization purposes rather than for primary diagnosis. The patient's blood glucose level at the time of injection was 126 MG/DL. Comparison is made to a study from 12/17/2016. There is hypermetabolic pleural nodularity in the left chest. The pleural nodularity has worsened slightly in the posterior aspect of the mid chest as best seen on axial CT image 146. A small nodule along the superior aspect of the oblique fissure has also increased slightly in size. The PET component demonstrates new and increasing FDG activity within this area of nodularity with a maximum SUV of 5.5. Hypermetabolic pleural nodularity in the posterior costophrenic angle on the left also appears to have progress slightly. Other areas of nodular mural thickening in the left chest have shown no definite change since the previous study. Nodular pleural thickening present medially in the left upper chest currently demonstrates a maximum SUV of 5.3, similar to that seen on the previous study. A left lower thoracic paraspinous mass appears to be of similar size. It demonstrates a maximum SUV of 7.3 compared to a measurement of 8.0 on the previous study. A small density involving the anterolateral lower chest wall on the left appears to have increased slightly in size and now demonstrates a maximum SUV of 4.0 compared to a value of 3.2 on the previous study. This lies just above the level of diaphragm near the left lateral costophrenic angle. Normal GI tract and urinary tract activity is present in the abdomen and pelvis. No new hypermetabolic abdominal or pelvic lesion is seen. Physiologic activity is evident in the neck. IMPRESSION: 1. The hypermetabolic pleural metastases in the left chest have progressed slightly as described above. 2. No definite change in the hypermetabolic left lower thoracic paraspinous mass.
== END | disposition home or self-care (01) ==
LOC: PETSC 08:41
PROVIDERS: ATTEND Internal Medicine Hematology & Oncology
DX: C78.2 Secondary malignant neoplasm of pleura (principal)
CPT/HCPCS: 78815; A9552

== ENCOUNTER → 2017-05-27 | Outpatient (CLI) | payer MEDICARE, OTHER | END | disposition home or self-care (01) | LOC: RAD 14:13 | DX: R91.8 Other nonspecific abnormal finding of lung field (principal) | CPT/HCPCS: 71046 ==

== ENCOUNTER 2017-06-11 20:33 | Inpatient (IN) | payer MEDICARE, OTHER ==
[2017-06-11 21:56] LABS: BASO % 0 % (0-3); EOS # 0.2 x10^3/uL (0.0-0.7); EOS % 2 % (0-3); HEMATOCRIT 35.3 % (39.0-53.0); HEMOGLOBIN 11.7 g/dL (13.0-17.5); LYMPH # 0.5 x10^3/uL (1.0-4.8); LYMPH % 4 % (24-48); MEAN CORPUSCULAR HEMOGLOBIN 30 pg (25-35); MEAN CORPUSCULAR HGB CONC 33 g/dL (31-37); MEAN CORPUSCULAR VOLUME 90 fL (79-100); MONO # 1.2 x10^3/uL (0.0-1.1); MONO % 9 % (0-9); NEUT % 86 % (31-73); PLATELET COUNT 258 x10^3/uL (140-400); RED BLOOD COUNT 3.93 x10^6/uL (4.30-5.70); RED CELL DISTRIBUTION WIDTH 14.5 % (11.5-14.5)
[2017-06-11 21:57] LABS: ADD MAN DIFF? YES
[2017-06-11] MEDS: IV NORMAL SALINE 1000ML BAG 1,000 ML IV ×2 (22:00→22:14)
[2017-06-11 22:07] LABS: ANION GAP 6 (6-14); BLOOD UREA NITROGEN 20 mg/dL (8-26); CALCIUM 8.7 mg/dL (8.5-10.1); CARBON DIOXIDE 33 mmol/L (21-32); CHLORIDE 103 mmol/L (98-107); CREATININE 0.9 mg/dL (0.7-1.3); GFR 100.9; GLUCOSE 153 mg/dL (70-99); POTASSIUM 3.9 mmol/L (3.5-5.1); SODIUM 142 mmol/L (136-145)
[2017-06-11] MEDS: BENZONATATE 100 MG CAPSULE. PO (22:14)
[2017-06-11 22:15] LABS: TROPONINI < 0.017 ng/mL (0.000-0.055)
[2017-06-11 22:16] LABS: % EOS 2 % (0-5); % LYMPHS 3 % (24-48); % MONOS 9 % (0-10); % SEGS 86 % (35-66); PLT ESTIMATE ADEQUATE (ADEQUATE); TOXIC GRANULATION SLIGHT; TOXIC VACUOLATION SLIGHT
[2017-06-11 22:43] LABS: INFLUENZA A PATIENT NEGATIVE (NEGATIVE); INFLUENZA B PATIENT NEGATIVE (NEGATIVE); OBC FLU VALID
[2017-06-12 00:11] LABS: LACTIC ACID 1.9 mmol/L (0.4-2.0)
[2017-06-12] MEDS: AZITHRMYCN 500MG IVPB FOR OMNI 250 ML IV (00:15)
[2017-06-12] MEDS: IV NORMAL SALINE 1000ML BAG 1,000 ML IV ×5 (00:30→17:48)
[2017-06-12] MEDS: MORPHINE SULFATE 2 MG/ML DISP.SYRIN. IV ×4 (01:22→12:58)
[2017-06-12 03:41] LABS: LACTIC ACID 0.9 mmol/L (0.4-2.0)
[2017-06-12] MEDS: ONDANSETRON PF 4 MG/2 ML VIAL. IV (04:01)
[2017-06-12] MEDS ORDERED: PNEUMOCOCCAL VAX SCREEN BY RX. MC (05:15)
[2017-06-12] MEDS ORDERED: cloNIDine HCL 0.1 MG TABLET PO (07:45)
[2017-06-12] MEDS ORDERED: guaiFENesin DM 200MG/20MG 10 ML SYRUP PO (07:45)
[2017-06-12] MEDS ORDERED: ONDANSETRON PF 4 MG/2 ML VIAL. IV (08:00)
[2017-06-12] MEDS ORDERED: TIMOLOL 0.5% OPHTH SOLUTION 5ML BOTTLE. OU (09:00)
[2017-06-12] MEDS: VERAPAMIL SR 120 MG TABLET.ER. PO (09:25)
[2017-06-12] MEDS: GABAPENTIN 300 MG CAPSULE. PO ×3 (09:26→21:08)
[2017-06-12] MEDS: HYDROcodone/APAP 5/325MG 1 TAB TABLET PO (09:26)
[2017-06-12] MEDS: LOSARTAN POTASSIUM 50 MG TABLET. PO (09:26)
[2017-06-12] MEDS: BENZONATATE 100 MG CAPSULE. PO ×3 (09:27→22:13)
[2017-06-12] MEDS: metFORMIN XR 500 MG TAB.ER.24H PO (09:27)
[2017-06-12] MEDS ORDERED: traMADol 50 MG TABLET PO (10:00)
[2017-06-12] MEDS ORDERED: HYDROcodone/APAP 10/325 1 TAB TABLET PO (10:00)
[2017-06-12] MEDS ORDERED: CONTRAST GIVEN MC (10:45)
[2017-06-12] MEDS: IOHEXOL 300 MG/ML 100ML VIAL. IV (10:45)
[2017-06-12] MEDS: TIMOLOL 0.5% OPHTH SOLUTION 5ML BOTTLE. OU ×3 (10:56→21:12)
[2017-06-12] MEDS: BRIMONIDINE 0.2% OPHTH SOLUTION 5ML BOTTLE. OU ×3 (10:57→22:13)
[2017-06-12] MEDS: AZITHROMYCIN 500 MG in IV NORMAL SALINE 250ML 250 ML IV (10:58)
[2017-06-12] MEDS: PANTOPRAZOLE 40 MG TABLET.DR. PO (11:01)
[2017-06-12] MEDS: ENOXAPARIN 40 MG/0.4 ML SYRINGE. SQ ×2 (11:02→11:15)
[2017-06-12] MEDS: cefTRIAXone IV Push 1 GM VIAL. IVP (11:02)
[2017-06-12] MEDS: IPRATRPIUM/ALBUTEROL 0.5/2.5MG 3 ML NEBU. NEB ×3 (11:35→19:57)
[2017-06-12] MEDS: BUDESONIDE 0.5 MG/2 ML NEBU. NEB ×2 (11:36→19:57)
[2017-06-12] MEDS: diphenhydrAMINE 50 MG/ML VIAL IVP (12:55)
[2017-06-12] MEDS: diphenhydrAMINE HCL 25 MG CAPSULE PO (13:19)
[2017-06-12] MEDS: HYDROcodone/APAP 10/325 1 TAB TABLET PO (14:33)
[2017-06-12] MEDS: LATANOPROST 0.005% OPHTH SOLUTION 2.5ML BOTTLE. OU (21:00)
[2017-06-12] MEDS: AMITRIPTYLINE HCL 25 MG TABLET. PO (21:00)
[2017-06-12] MEDS: ZOLPIDEM 5 MG TABLET. PO (21:08)
[2017-06-13 05:14] LABS: ADD MAN DIFF? NO
[2017-06-13] MEDS: HYDROcodone/APAP 10/325 1 TAB TABLET PO ×2 (05:20→11:02)
[2017-06-13 05:21] LABS: BASO % 0 % (0-3); EOS # 0.2 x10^3/uL (0.0-0.7); EOS % 2 % (0-3); HEMOGLOBIN 10.8 g/dL (13.0-17.5); LYMPH # 0.4 x10^3/uL (1.0-4.8); LYMPH % 3 % (24-48); MEAN CORPUSCULAR HEMOGLOBIN 30 pg (25-35); MEAN CORPUSCULAR HGB CONC 33 g/dL (31-37); MEAN CORPUSCULAR VOLUME 90 fL (79-100); MONO # 1.1 x10^3/uL (0.0-1.1); MONO % 9 % (0-9); NEUT # 10.7 x10^3uL (1.8-7.7); NEUT % 85 % (31-73); PLATELET COUNT 225 x10^3/uL (140-400); RED BLOOD COUNT 3.66 x10^6/uL (4.30-5.70); RED CELL DISTRIBUTION WIDTH 14.3 % (11.5-14.5); WHITE BLOOD COUNT 12.5 x10^3/uL (4.0-11.0)
[2017-06-13] MEDS: BUDESONIDE 0.5 MG/2 ML NEBU. NEB (07:35)
[2017-06-13] MEDS: IPRATRPIUM/ALBUTEROL 0.5/2.5MG 3 ML NEBU. NEB ×2 (07:35→11:15)
[2017-06-13 08:08] LABS: POC GLUCOSE 149 mg/dL (70-99)
[2017-06-13] MEDS: GABAPENTIN 300 MG CAPSULE. PO ×2 (09:44→13:38)
[2017-06-13] MEDS: AZITHROMYCIN 250 MG TABLET. PO (09:44)
[2017-06-13] MEDS: LOSARTAN POTASSIUM 50 MG TABLET. PO (09:46)
[2017-06-13] MEDS: VERAPAMIL SR 120 MG TABLET.ER. PO (09:46)
[2017-06-13] MEDS: PANTOPRAZOLE 40 MG TABLET.DR. PO (09:46)
[2017-06-13] MEDS: BENZONATATE 100 MG CAPSULE. PO ×2 (09:46→13:38)
[2017-06-13] MEDS: TIMOLOL 0.5% OPHTH SOLUTION 5ML BOTTLE. OU (09:47)
[2017-06-13] MEDS: PNEUMOC CONJ VACC 23-VALENT 0.5 ML VIAL. VAX IM (09:52)
[2017-06-13] MEDS: ENOXAPARIN 40 MG/0.4 ML SYRINGE. SQ (11:03)
[2017-06-13] MEDS: cefTRIAXone IV Push 1 GM VIAL. IVP (11:03)
[2017-06-13 11:44] LABS: POC GLUCOSE 118 mg/dL (70-99)
[2017-06-14] MEDS ORDERED: metFORMIN XR 500 MG TAB.ER.24H PO (21:00)
== END 2017-06-13 14:11 | disposition home or self-care (01) | DRG 871 ==
LOC: 5 SOUTH 06-12 00:17 → ER 20:33
DX: A41.9 Sepsis, unspecified organism (principal); J18.9 Pneumonia, unspecified organism; C78.2 Secondary malignant neoplasm of pleura; C37 Malignant neoplasm of thymus; D63.8 Anemia in other chronic diseases classified elsewhere; E11.9 Type 2 diabetes mellitus without complications; E78.5 Hyperlipidemia, unspecified; G47.00 Insomnia, unspecified; G89.29 Other chronic pain; I10 Essential (primary) hypertension; J45.909 Unspecified asthma, uncomplicated; Z79.84 Long term (current) use of oral hypoglycemic drugs; Z79.899 Other long term (current) drug therapy; Z80.3 Family history of malignant neoplasm of breast; Z85.46 Personal history of malignant neoplasm of prostate; Z92.21 Personal history of antineoplastic chemotherapy; Z88.5 Allergy status to narcotic agent
CPT/HCPCS: 36415; 71045; 71275; 80048; 82962; 83605; 84484; 85007; 85025; 87040; 87804; 87804-59; 90732; 93005; 94640; 94760; 96361; 96365; 96367; 99285-25; J0456; J0690; J0696; J1200; J1650; J2270; J2405; J7030; J7050; J7620; J7626; Q0144; Q9967

== ENCOUNTER → 2017-07-08 | Outpatient (CLI) | payer MEDICARE, OTHER | END | disposition home or self-care (01) | LOC: PETSC 08:38 | DX: C78.2 Secondary malignant neoplasm of pleura (principal); J90 Pleural effusion, not elsewhere classified; E03.9 Hypothyroidism, unspecified; E04.8 Other specified nontoxic goiter | CPT/HCPCS: 78815; A9552 ==

== ENCOUNTER → 2017-12-09 | Outpatient (CLI) | payer MEDICARE, OTHER ==
[2017-06-13 11:50] VITALS: BP 147/91
[~2017-12-09] MED LIST changes: +AMOX1TAB61 PO; +BUDE10.2 IH; -METF-620 PO; +METF10003 PO; +PEMB100V IV; -SPIR25TA3 PO; +SPIR25TA5 PO; +TRAN4TAB22 PO; -TRAN4TAB9 PO; +VENTOLIN HFA18 GM INH
--- NOTE | 2017-12-09 14:56 | RAD ---
CLINICAL HISTORY: Thymic cancer, restaging INDICATION: Restaging. COMPARISON: Prior PET scan 07/08/2017 TECHNIQUE: Radiopharmaceutical Dose: 13.12 mCi F-18 FDG intravenous Blood glucose at time of study: 168 FDG uptake time = 60 minutes. Images were obtained from the mid head to the mid thighs. A low dose, noncontrast CT study was performed for the purpose of attenuation correction and anatomic localization. FINDINGS: Head and Neck: Physiologic activity is seen within the neck. Chest: Extensive hypermetabolic activity is seen along the left chest and pleura with associated pleural nodularity. The degree of pleural fluid on the left has mildly decreased. The left paraspinal soft tissue density is mildly decreased in size, now with an SUV of 7.3, previously 9.7. A left lateral pleural hypermetabolic nodule demonstrates a maximum SUV of 5.4, previously 6.3. No focus of increased metabolic activity within the right chest. Abdomen and Pelvis: Normal GI and urinary tract activity is seen. Skeletal: Mild uptake at scattered osseous foci likely degenerative. IMPRESSION: 1. In general, the degree of metabolic activity has decreased within the left pleura and left paraspinal soft tissues suggesting favorable response. No new suspicious focus of abnormal metabolic activity. 2. Degree of left pleural effusion has also decreased.
== END | disposition home or self-care (01) ==
LOC: PETSC 10:01
PROVIDERS: ATTEND Internal Medicine Hematology & Oncology
DX: C37 Malignant neoplasm of thymus (principal); J90 Pleural effusion, not elsewhere classified; I10 Essential (primary) hypertension; E11.9 Type 2 diabetes mellitus without complications; E78.00 Pure hypercholesterolemia, unspecified; J45.909 Unspecified asthma, uncomplicated
CPT/HCPCS: 78815; A9552

== ENCOUNTER → 2018-06-16 | Outpatient (CLI) | payer MEDICARE, OTHER ==
[2017-06-13 11:50] VITALS: BP 147/91
[~2018-06-16] MED LIST changes: +AMLO5TAB10 PO; -AMLO5TAB2 PO; -GABA-586 PO; +GABA300C18 PO; -GABA800T2 PO; +GABA800T5 PO; +HYDR-3164 PO; +HYDR-3165 PO; -HYDR-965 PO; -HYDR-971 PO; -METF10003 PO; +METF10007 PO; +MORP15TA3 PO; -OXYC-323 PO; +OXYC1TAB15 PO
--- NOTE | 2018-06-16 11:28 | RAD ---
FDG tumor localization scan, PET/CT, 06/16/2018: History: Thymic cancer Following IV injection of 13.0 mCi of 18 F-FDG, imaging was performed from the skull base to the proximal thighs. The noncontrast CT component was performed for attenuation correction and anatomic localization purposes rather than for primary diagnosis. The patient's blood glucose level at the time of injection was 117 MG/DL. Comparison is made to a study from 12/09/2017. Again identified are multiple hypermetabolic pleural nodules in the left chest. These have increased in size since the previous study. For example a 10 mm pleural nodule in the anterior aspect of the left upper lobe present on the previous study now measures 16 mm. Lobulated pleural thickening laterally in the left mid chest has increased. The maximum SUV in this region is 5-6, similar to that seen on the previous study. The hypermetabolic soft tissue densities in the left paraspinous region have progressed, particularly in the lower chest with extension into the retrocrural region. The maximum SUV in this region is 7.3, similar to that seen on the previous study. A 10 mm pulmonary nodule previously seen in the left upper lobe now measures 13-14 mm. It now demonstrates increased FDG uptake with a maximum SUV of 2.8. No abnormal neck FDG uptake is seen. GI tract and urinary tract activity is present in the abdomen and pelvis. A 2 cm left periaortic hypermetabolic nodule has developed just superior to the level of the renal vessels. Its maximum SUV is 7.2. There is now hypermetabolic soft tissue thickening involving the upper abdominal wall anterolaterally on the left with an adjacent 18 mm hypermetabolic subcutaneous nodule. In retrospect this nodule measured 13 mm on the previous study. IMPRESSION: 1. Worsening pleural and parenchymal metastatic disease in the left chest. 2. Worsening metastatic disease involving the upper abdominal wall anterolaterally on the left. 3. Hypermetabolic left pelvic adenopathy has developed, presumably on a metastatic basis.
== END | disposition home or self-care (01) ==
LOC: PETSC 08:21
PROVIDERS: ATTEND Internal Medicine Hematology & Oncology
DX: C37 Malignant neoplasm of thymus (principal); R59.0 Localized enlarged lymph nodes; R91.1 Solitary pulmonary nodule; R19.07 Generalized intra-abdominal and pelvic swelling, mass and lump
CPT/HCPCS: 78815; A9552

== ENCOUNTER 2018-12-29 13:15 | Emergency (ER) | payer MEDICARE, OTHER ==
[~2018-12-29] VITALS: Ht 185.4 cm; Wt 73.9 kg
[~2018-12-29 13:15] MED LIST changes: -BRIM5DRO2 OP; +BRIM5DRO2 OU; +CYAN-25 PO; -CYAN10005 PO; +MORP-15 PO; -MORP15TA3 PO
[2018-12-29] MEDS ORDERED: ASPIRIN 325 MG TABLET PO ONE (13:30)
[2018-12-29] MEDS ORDERED: fentaNYL PF VIAL 100 MCG/2 ML VIAL IV ONE (13:30)
--- NOTE | 2018-12-29 14:01 | RAD ---
PORTABLE CHEST 1V History: Chest pain Comparison: CT April 11, 2018 and chest x-ray June 11, 2017 Findings: Increased loculated left pleural effusion. Increased patchy left lung opacities. No left midlung nodule better characterized on prior CT. Prior median sternotomy. Normal heart size. No right lung opacity or pleural effusion. Impression: 1. Increased loculated left pleural effusion. 2. Increased patchy opacities within the left lung, may represent pneumonia. Electronically signed by: Santo Vieyra DO (12/29/2018 1:58 PM) [id number]
[2018-12-29 14:13] LABS: BASO # 0.1 x10^3/uL (0.0-0.2); BASO % 1 % (0-3); EOS # 0.1 x10^3/uL (0.0-0.7); EOS % 1 % (0-3); HEMATOCRIT 34.4 % (39.0-53.0); HEMOGLOBIN 11.2 g/dL (13.0-17.5); LYMPH # 0.4 x10^3/uL (1.0-4.8); LYMPH % 3 % (24-48); MEAN CORPUSCULAR HEMOGLOBIN 28 pg (25-35); MEAN CORPUSCULAR HGB CONC 33 g/dL (31-37); MEAN CORPUSCULAR VOLUME 86 fL (79-100); MONO # 0.9 x10^3/uL (0.0-1.1); MONO % 7 % (0-9); NEUT # 10.3 x10^3/uL (1.8-7.7); NEUT % 88 % (31-73); PLATELET COUNT 289 x10^3/uL (140-400); RED BLOOD COUNT 3.99 x10^6/uL (4.30-5.70); WHITE BLOOD COUNT 11.7 x10^3/uL (4.0-11.0)
[2018-12-29] MEDS: NITROGLYCERIN SUBLINGUAL 0.4 MG BOTTLE OF 25. SL PRN ×2 (14:13→15:17)
[2018-12-29 14:30] LABS: CALCIUM 9.4 mg/dL (8.5-10.1); CREATININE 0.8 mg/dL (0.7-1.3); POTASSIUM 3.5 mmol/L (3.5-5.1)
[2018-12-29 14:38] LABS: % EOS 1 % (0-5); % LYMPHS 2 % (24-48); % MONOS 4 % (0-10); % SEGS 93 % (35-66); ALBUMIN 2.9 g/dL (3.4-5.0); ALBUMIN/GLOBULIN RATIO 0.6 (1.0-1.7); MAGNESIUM 1.8 mg/dL (1.8-2.4); PLT ESTIMATE ADEQUATE (ADEQUATE); SCHISTOCYTES FEW; TOTAL BILIRUBIN 0.4 mg/dL (0.2-1.0); TOTAL PROTEIN 7.4 g/dL (6.4-8.2)
[2018-12-29 14:39] LABS: ANISOCYTOSIS SLIGHT
[2018-12-29 14:44] LABS: CREATINE KINASE 41 U/L (39-308)
[2018-12-29] MEDS ORDERED: cefTRIAXone IV Push 1 GM VIAL. IVP ONE (17:15)
--- NOTE | 2018-12-29 17:20 | PHYS DOC ---
Past Medical History Past Medical History: Cancer, Diabetes-Type II, High Cholesterol, Hypertension, Other Additional Past Medical Histor: prostate ca, thymic carcinoma, ductal carcinoma, neuropathy, swelling Past Surgical History: Other Additional Past Surgical Histo: prostectomy, chemo, radiation Alcohol Use: None Drug Use: None Adult General Chief Complaint Chief Complaint: CHEST PAIN HPI HPI Patient is a 73 year old male patient with history of thymic cancer Jayesh mcdonough right now on palliative care, hypertension, high cholesterol, diabetes type 2, who presents to the ED today complaining of 6 out of 10 sharp intermittent left-sided chest pain that began this afternoon while running errands with the patient states the pain is worse on palpation of the left chest area. Denies any fever. Denies anything specifically relieving the pain. Review of Systems Review of Systems Constitutional: Denies fever or chills [] Eyes: Denies change in visual acuity, redness, or eye pain [] HENT: Denies nasal congestion or sore throat [] Respiratory: Denies cough or shortness of breath [] Cardiovascular: Reports left-sided chest pain GI: Denies abdominal pain, nausea, vomiting, bloody stools or diarrhea [] : Denies dysuria or hematuria [] Musculoskeletal: Denies back pain or joint pain [] Integument: Denies rash or skin lesions [] Neurologic: Denies headache, focal weakness or sensory changes [] All other systems were reviewed and found to be within normal limits, except as documented in this note. Current Medications Current Medications Current Medications Medications (Trade) Dose Ordered Sig/Jacinta Start Time Stop Time Status Last Admin Dose Admin Aspirin (Janes Aspirin) 325 mg 1X ONCE 12/29/18 13:30 12/29/18 13:31 DC 12/29/18 14:13 325 MG Ceftriaxone Sodium (Rocephin) 1 gm 1X ONCE 12/29/18 17:15 12/29/18 17:16 DC 12/29/18 17:22 1 GM Fentanyl Citrate (Fentanyl 2ml Vial) 50 mcg 1X ONCE 12/29/18 13:30 12/29/18 13:31 DC 12/29/18 14:13 50 MCG Nitroglycerin (Nitrostat) 0.4 mg PRN Q5MIN PRN 12/29/18 13:30 12/29/18 15:18 0.4 MG Allergies Allergies Allergies Coded Allergies Type Severity Reaction Last Updated Verified oxycodone Allergy Intermediate PURITIS 02/11/16 Yes Physical Exam Physical Exam Constitutional: Well developed, well nourished, no acute distress, non-toxic appearance. [] HENT: Normocephalic, atraumatic, bilateral external ears normal, oropharynx moist, no oral exudates, nose normal. [] Eyes: PERRLA, EOMI, conjunctiva normal, no discharge. [] Neck: Normal range of motion, no tenderness, supple, no stridor. [] Cardiovascular:Heart rate regular rhythm, no murmur [] Lungs & Thorax: Bilateral breath sounds clear to auscultation [] Abdomen: Bowel sounds normal, soft, no tenderness, no masses, no pulsatile masses. [] Skin: Warm, dry, no erythema, no rash. [] Back: No tenderness, no CVA tenderness. [] Extremities: No tenderness, no cyanosis, no clubbing, ROM intact, no edema. [] Neurologic: Alert and oriented X 3, normal motor function, normal sensory fu nction, no focal deficits noted. [] Psychologic: Affect normal, judgement normal, mood normal. [] Current Patient Data Vital Signs Vital Signs Date Time Temp Pulse Resp B/P (MAP) Pulse Ox O2 Delivery O2 Flow Rate FiO2 12/29/18 17:22 94 13 153/82 (105) 94 Room Air 12/29/18 13:15 98.3 98.3 Lab Values Laboratory Tests Test 12/29/18 14:00 12/29/18 16:50 White Blood Count 11.7 x10^3/uL (4.0-11.0) H Red Blood Count 3.99 x10^6/uL (4.30-5.70) L Hemoglobin 11.2 g/dL (13.0-17.5) L Hematocrit 34.4 % (39.0-53.0) L Mean Corpuscular Volume 86 fL (79-100) Mean Corpuscular Hemoglobin 28 pg (25-35) Mean Corpuscular Hemoglobin Concent 33 g/dL (31-37) Red Cell Distribution Width 15.0 % (11.5-14.5) H Platelet Count 289 x10^3/uL (140-400) Neutrophils (%) (Auto) 88 % (31-73) H Lymphocytes (%) (Auto) 3 % (24-48) L Monocytes (%) (Auto) 7 % (0-9) Eosinophils (%) (Auto) 1 % (0-3) Basophils (%) (Auto) 1 % (0-3) Neutrophils # (Auto) 10.3 x10^3/uL (1.8-7.7) H Lymphocytes # (Auto) 0.4 x10^3/uL (1.0-4.8) L Monocytes # (Auto) 0.9 x10^3/uL (0.0-1.1) Eosinophils # (Auto) 0.1 x10^3/uL (0.0-0.7) Basophils # (Auto) 0.1 x10^3/uL (0.0-0.2) Segmented Neutrophils % 93 % (35-66) H Lymphocytes % 2 % (24-48) L Monocytes % 4 % (0-10) Eosinophils % 1 % (0-5) Platelet Estimate Adequate (ADEQUATE) Anisocytosis Slight Schistocytes Few Sodium Level 140 mmol/L (136-145) Potassium Level 3.5 mmol/L (3.5-5.1) Chloride Level 100 mmol/L (98-107) Carbon Dioxide Level 35 mmol/L (21-32) H Anion Gap 5 (6-14) L Blood Urea Nitrogen 19 mg/dL (8-26) Creatinine 0.8 mg/dL (0.7-1.3) Estimated GFR (Cockcroft-Gault) 115.0 BUN/Creatinine Ratio 24 (6-20) H Glucose Level 121 mg/dL (70-99) H Calcium Level 9.4 mg/dL (8.5-10.1) Magnesium Level 1.8 mg/dL (1.8-2.4) Total Bilirubin 0.4 mg/dL (0.2-1.0) Aspartate Amino Transferase (AST) 15 U/L (15-37) Alanine Aminotransferase (ALT) 8 U/L (16-63) L Alkaline Phosphatase 128 U/L (46-116) H Creatine Kinase 41 U/L (39-308) Creatine Kinase MB (Mass) 0.5 ng/mL (0.0-3.6) Creatine Kinase MB Relative Index % (0-4) Troponin I Quantitative < 0.017 ng/mL (0.000-0.055) < 0.017 ng/mL (0.000-0.055) QH-Rlz-D-Type Natriuretic Peptide 105 pg/mL (0-124) Total Protein 7.4 g/dL (6.4-8.2) Albumin 2.9 g/dL (3.4-5.0) L Albumin/Globulin Ratio 0.6 (1.0-1.7) L Thyroid Stimulating Hormone (TSH) 1.079 uIU/mL (0.358-3.74) Laboratory Tests 12/29/18 14:00 Laboratory Tests 12/29/18 14:00 EKG EKG [address] Sawyer sinus tachycardia HR 101 no STEMI Radiology/Procedures Radiology/Procedures []PROCEDURE: PORTABLE CHEST 1V PORTABLE CHEST 1V History: Chest pain Comparison: CT April 11, 2018 and chest x-ray June 11, 2017 Findings: Increased loculated left pleural effusion. Increased patchy left lung opacities. No left midlung nodule better characterized on prior CT. Prior median sternotomy. Normal heart size. No right lung opacity or pleural effusion. Impression: 1. Increased loculated left pleural effusion. 2. Increased patchy opacities within the left lung, may represent pneumonia. Electronically signed by: Santo Sierra DO (12/29/2018 1:58 PM) [id number] DICTATED and SIGNED BY: SANTO SIERRA DO DATE: 12/29/18 1358 Course & Med Decision Making Course & Med Decision Making Pertinent Labs and Imaging studies reviewed. (See chart for details) This is a 73-year-old male patient with history of time he can consult currently on palliative care presenting to the ED today with chest pain that began this a fternoon. CBC with a WBC of 11.7, CMP would not acute findings. Two sets of troponin were done which were negative. Chest x-ray noted for possible left lobe pneumonia. Was given Rocephin in the ED. He is afebrile. See Heart score- on template Patient was offered admission, he declined. Discharged on Levaquin. Dragon Disclaimer Dragon Disclaimer This electronic medical record was generated, in whole or in part, using a voice recognition dictation system. The HEART Score for CP Pts HEART Score for Chest Pain: HEART Score for Chest Pain Response (Comments) Value History Slighlty/Non-Suspicious 0 ECG Normal 0 Age > 65 2 Risk Factors 1 or 2 Risk Factors 1 Troponin < Normal Limit 0 Total 3 Risk Factors: Risk Factors: DM, Current or recent (<one month) smoker, HTN, HLP, family history of CAD, obesity. Risk Scores: Score 0 - 3: 2.5% MACE over next 6 weeks - Discharge Home Score 4 - 6: 20.3% MACE over next 6 weeks - Admit for Clinical Observation Score 7 - 10: 72.7% MACE over next 6 weeks - Early Invasive Strategies Departure Departure Impression: Primary Impression: Chest pain made worse by breathing Additional Impressions: Left lower lobe pneumonia Pleural effusion Disposition: HOME, SELF-CARE Condition: STABLE Referrals: UNKNOWN PCP NAME (PCP) Follow-up with your doctor in 1-2 days DANNI ABAD MD follow up in 1-2 days Patient Instructions: Chest Pain (Nonspecific), [id number], Pneumonia, Adult Additional Instructions: You were seen in the emergency room for chest pain and a chest x-ray was concern ing for pneumonia. We put you on antibiotics, ensure you complete them. Please try and follow-up with your primary care doctor and surgical rn if you have one in the next 1-2 days. We provided you a surgical rn to follow-up with if you don't have one. Come back to the ED at any point symptoms worsen. Scripts Levofloxacin (LEVAQUIN) 500 Mg Tablet 1 TAB PO DAILY, #7 TAB Prov: JASON TABOR APRN 12/29/18 Problem Qualifiers Additional Impressions: Left lower lobe pneumonia Pneumonia type: due to unspecified organism Qualified Codes: J18.1 - Lobar pneumonia, unspecified organism JASON TABOR HOISTING MACHINE OPERATOR Dec 29, 2018 17:20
[2018-12-29 17:22] VITALS: BP 153/82
[2018-12-29] MEDS ORDERED: LEVO500T59 PO (17:29)
--- NOTE | 2018-12-30 06:02 | EKG ---
[facility] [address] [place] [id number] Test Date: 2018-12-29 Test Time: 13:21:56 Pat Name: LYNDA WILSON Department: Room: Gender: M Hr Leader: : 1945 Requested By: JASON TABOR Order Number: [id number] Reading MD: Measurements Intervals [place] Rate: 100 P: 64 IA: 150 QRS: 45 QRSD: 90 T: 66 QT: 346 QTc: 449 Interpretive Statements SINUS TACHYCARDIA OTHERWISE NORMAL ECG No previous ECG available for comparison
[2018-12-30] MEDS ORDERED: DULO20CA PO (17:28)
[2018-12-30] MEDS ORDERED: SENN-80 PO (17:28)
[2018-12-30] MEDS ORDERED: AMLO5TAB10 PO (17:28)
[2018-12-30] MEDS ORDERED: LACT20SO PO (17:28)
[2018-12-30] MEDS ORDERED: LIDOCAIN TP (18:14)
[2018-12-30] MEDS ORDERED: MORP100T30 PO (18:14)
[2018-12-30] MEDS ORDERED: MORP30TA PO (18:14)
[2018-12-30] MEDS ORDERED: MORP60TA60 PO (18:14)
[2019-01-02] MEDS ORDERED: DOXY100T9 PO (14:11)
[2019-01-02] MEDS ORDERED: ALBU2.5V8 INH (14:13)
== END 2018-12-29 17:40 | disposition home or self-care (01) ==
LOC: ER 13:15
DX: J90 Pleural effusion, not elsewhere classified (principal); J18.1 Lobar pneumonia, unspecified organism; E78.00 Pure hypercholesterolemia, unspecified; I10 Essential (primary) hypertension; E11.40 Type 2 diabetes mellitus with diabetic neuropathy, unspecified; Z88.5 Allergy status to narcotic agent
CPT/HCPCS: 99285; J0696; J3010; 36415; 71045; 80053; 82550; 82553; 83735; 83880; 84443; 84484; 85007; 85025; 93005; 96374; 96375